=== PATIENT | female | born 1960 | race Caucasian/White ===

== ENCOUNTER 2017-07-09 12:13 | Emergency (ER) | payer OTHER ==
[~2017-07-09] VITALS: Ht 162.6 cm; Wt 72.3 kg
[2017-07-09 12:24] VITALS: BP 152/83
[2017-07-09] MEDS: IBUPROFEN 800 MG TAB PO ONE (13:14)
[2017-07-09 13:25] VITALS: BP 148/84
== END 2017-07-09 13:25 | disposition home or self-care (01) ==
LOC: MED 12:13
DX: M77.31 Calcaneal spur, right foot (principal)
CPT/HCPCS: 73630; 99284